=== PATIENT | female | born 2005 ===

== ENCOUNTER 2025-01-05 10:50 | Emergency (ER) | payer BC, SELFPAY ==
[2025-01-05 11:01] VITALS: BP 136/83; PULSE 73; RESP 24; TEMP 36.9; O2SAT 100; BMI 21.5
--- NOTE | 2025-01-05 11:19 | ED.NAVMDI ---
HPI - Nausea/Vomiting/Diarrhea General Chief complaint: Nausea/Vomiting/Diarrhea Stated complaint: vomiting, diarrhea, abd pain Time Seen by Provider: 01/05/25 11:10 Source: patient Mode of arrival: ambulatory Limitations: no limitations History of Present Illness ED Provider: HPI Narrative: 19-year-old woman presenting with abdominal pain nausea vomiting and diarrhea, she states this is common for her around the time she gets her period, she states she has been evaluated for this in the past and had an ultrasound done and on February 15 she is scheduled to see an Ob provider. Denies being , denies alcohol use, drug use. Related Data Previous Rx's ?Medication ?Instructions ?Recorded ondansetron 4 mg disintegrating 4 mg PO Q8H PRN nausea and 01/05/25 tablet vomiting #4 tabs Allergies Allergy/AdvReac Type Severity Reaction Status Date / Time No Known Allergies Allergy Verified 01/05/25 11:03 Review of Systems Constitutional: Constitutional: Reports as per [facility] Social History Social History Advance Directives: No Advance Directives Information Provided: Yes Physical Exam Vital Signs: Vital Signs: Last Vital Signs Temp 98.5 F 01/05/25 11:01 Pulse 73 01/05/25 11:01 Resp 24 H 01/05/25 11:01 BP 136/83 01/05/25 11:01 Pulse Ox 100 01/05/25 11:01 O2 Del Method Room Air 01/05/25 11:01 BMI result Body Mass Index 21.5 Const: Other: Gen: ?Appears to be in some discomfort HEENT: PERRLA, EOMI, MMM, Neck: Supple, no LAD CV: RRR, no obvious murmurs appreciated Resp: ?No wheezing rales rhonchi no stridor moving air well Abd: ?Bowel sounds are present, no tenderness no rebound no rigidity MSK: FROM, strength 5/5 all extremities Skin: Warm, dry, intact, Neuro: ?Alert and oriented x3, moving upper and lower extremities symmetrically, no obvious facial asymmetry noted Medications Administered Discontinued Medications Generic Name Dose Route Start Last Admin Trade Name Freq PRN Reason Stop Dose Admin Famotidine 20 mg 01/05/25 11:22 01/05/25 11:33 Famotidine/Pf 20 Mg/2 Ml Vial IVPUSH 01/05/25 11:23 20 mg ONCE ONE Administration Sodium Chloride 1,000 mls @ 999 mls/hr 01/05/25 11:30 01/05/25 12:12 Ns IV 01/05/25 12:30 Infused .Q1H1M OLIVIER Infusion Ketorolac Tromethamine 15 mg 01/05/25 11:22 01/05/25 11:33 Ketorolac Tromethamine 15 Mg/Ml Vial IVPUSH 01/05/25 11:23 15 mg ONCE ONE Administration Ondansetron HCl 4 mg 01/05/25 11:22 01/05/25 11:33 Ondansetron Hcl 4 Mg/2 Ml Vial IVPUSH 01/05/25 11:23 4 mg ONCE ONE Administration Medical Decision Making Medical Decision Making MDM Narrative: No prior records on this patient she states that this is a recurrent issue for her, we will medicate and reassess, fairly benign abdominal exam consideration for workup as below. Disposition to be determined 1:26 PM 01/05/2025 (Dr. Jadon Landa): Patient has been sleeping feeling better, workup reassuring Differential Diagnosis Differential Diagnoses: The differential diagnosis associated with the presentation includes (Ovarian torsion, ovarian cysts, viral infection, diverticulitis, appendicitis) Admission/Observation Consideration of admission/observation: Escalation of care including admission/observation considered Lab Data 01/05/25 11:29 01/05/25 11:29 Labs: Lab Results 01/05/25 01/05/25 Range/Units 11:29 12:18 WBC 6.8 (4.8-10.8) X10*3/uL RBC 4.12 L (4.20-5.50) X10*6/uL Hgb 9.9 L (12.0-16.0) g/dl Hct 29.8 L (37.0-47.0) % MCV 72.3 L (80.0-98.0) fL MCH 24.0 L (27.0-33.0) pg MCHC 33.2 (31.0-35.0) g/dl RDW 16.3 H (11.0-16.0) % Plt Count 307 (160-400) X10*3/uL MPV 9.4 (9.4-12.3) fL Immature Gran % (Auto) 0.1 (0.0-0.4) % Neut % (Auto) 65.7 (45-73) % Lymph % (Auto) 21.9 (20-40) % [place] % (Auto) 9.2 (2-11) % Eos % (Auto) 2.8 (0-4) % Baso % (Auto) 0.3 (0-2) % Lymph # (Auto) 1.5 (1.2-4.9) X10*3/uL [place] # (Auto) 0.6 (0.1-1.2) X10*3/uL Eos # (Auto) 0.2 (0.0-0.4) X10*3/uL Baso # (Auto) 0.0 (0.0-0.2) X10*3/uL Abs Immat Gran (auto) 0.01 (0.00-0.03) X10*3/uL Absolute Neuts (auto) 4.4 (2.0-8.3) x10*3/uL Absolute Nucleated RBC 0.000 (0.0-0.012) X10*3/uL Nucleated RBC % (auto) 0.0 (0.0-0.2) /100WBC Sodium 140 (135-145) mmol/L Potassium 3.3 (3.3-5.1) mmol/L Chloride 110 H (96-108) mmol/L Carbon Dioxide 20 L (22-29) mmol/L Anion Gap 13 (12-20) BUN 12 (9-16) mg/dL Creatinine 0.63 (0.5-1.4) mg/dL Estim Creat Clear Calc 117.8 Estimated GFR > 60 Random Glucose 89 (60-115) mg/dL Calcium 9.1 (8.4-10.2) mg/dL Total Bilirubin 1.2 H (0.0-1.0) mg/dL AST 24 (5-31) U/L ALT 14 (0-31) U/L Alkaline Phosphatase 55 (39-117) U/L Total Protein 7.2 (6.5-8.0) g/dL Albumin 4.5 (3.5-5.0) g/dL Lipase 16 (8-78) U/L Beta HCG, Quant < 2 mIU/mL Urine Color Yellow Urine Appearance Clear Urine pH 6.5 (5.0-9.0) Ur Specific [place] 1.025 (1.005-1.025) Urine Protein Negative (Neg-Trace) mg/dL Urine Glucose (UA) Negative (Negative) mg/dL Urine Ketones 15 (Negative) mg/dL Urine Blood Large (3+) H (Negative) Urine Nitrite Negative (Negative) Ur Leukocyte Esterase Trace H (Negative) Urine RBC 0-2 (0-2) /HPF Urine WBC 0-5 (0-5) /HPF Ur Squamous Epith Cells 0-2 (0-2) /HPF Urine Bacteria None Seen (None Seen) Hyaline Casts 3-5 (0-2) /LPF Discharge Plan Discharge Clinical Impression: Nausea and vomiting, Timothy Additional Instructions: Continue using ibuprofen 400 mg every 6 hours for the next 2 days, warm compresses to the abdomen, take this medication with food, Zofran as needed for nausea and vomiting Your workup today revealed microcytic anemia, I recommend iron supplements who, just get multivitamins that contain iron for daily use, these are [id number], the iron supplements that we have prescribe are quite honestly very constipating and can be very rough on the stomach, alternatively you can look for beet juice based iron supplement I know [facility] has some choices Zofran as needed for nausea and vomiting Prescriptions: New ondansetron 4 mg tablet,disintegrating 4 mg PO Q8H PRN (Reason: nausea and vomiting) Qty: 4 0RF Print Language: Faroese
--- NOTE | 2025-01-05 11:42 | PC.NURSE ---
Pt in tears at this time, IV placed, medications given per mar. Pt reporting this happens when she gets her period, of which she started this morning. Pt denies any other symptoms at this time. This RN discussed with pt concerns d/t receiving toradol prior to beta being back pt denied and was in agreement to get medication. Pt is not able to go pee at this time, aware that she needs a urine sample. Call magdaleno within reach at this time
[2025-01-05 11:56] LABS: MANUAL DIFF FLAG NO
[2025-01-05 11:59] LABS: Hematocrit 29.8 % (37.0-47.0); Hemoglobin 9.9 g/dl (12.0-16.0); Imm Gran Abs Auto 0.01 X10*3/uL (0.00-0.03); Imm Gran Pct Auto 0.1 % (0.0-0.4); Lymphocytes Absolute Auto 1.5 X10*3/uL (1.2-4.9); Mean Corpuscular HGB Conc 33.2 g/dl (31.0-35.0); Mean Corpuscular Hemoglobin 24.0 pg (27.0-33.0); Mean Corpuscular Volume 72.3 fL (80.0-98.0); NRBC Abs Auto 0.000 X10*3/uL (0.0-0.012); NRBC Pct Auto 0.0 /100WBC (0.0-0.2); Platelet Count 307 X10*3/uL (160-400); Red Blood Count 4.12 X10*6/uL (4.20-5.50); White Blood Count 6.8 X10*3/uL (4.8-10.8)
--- NOTE | 2025-01-05 12:17 | MHC.EDTECH ---
pt vomited 50mL of light yellow, foamy emesis
[2025-01-05 12:21] LABS: Alanine Aminotransferase 14 U/L (0-31); Albumin Level 4.5 g/dL (3.5-5.0); Alkaline Phosphatase 55 U/L (39-117); Anion Gap 13 (12-20); Aspartate Amino Transferase 24 U/L (5-31); Blood Urea Nitrogen 12 mg/dL (9-16); Calcium 9.1 mg/dL (8.4-10.2); Carbon Dioxide 20 mmol/L (22-29); Chloride 110 mmol/L (96-108); Creatinine Clr Calc Pharmacy 117.8; Estimated Glomerular Filt Rate > 60; Lipase 16 U/L (8-78); Potassium 3.3 mmol/L (3.3-5.1); Sodium 140 mmol/L (135-145); Total Protein 7.2 g/dL (6.5-8.0)
[2025-01-05 12:23] LABS: Appearance Urine Clear; Glucose Urine UA Negative (Negative); PH 6.5 (5.0-9.0); Specific Gravity - Urine 1.025 (1.005-1.025); UMIC TRIGGER UACC YES
[2025-01-05 13:56] VITALS: BP 136/83; PULSE 73; RESP 24; TEMP 36.9; O2SAT 100
== END 2025-01-05 13:57 | disposition home or self-care (01) ==
PROVIDERS: Emergency Provider Emergency Medicine; PCP Student in an Organized Health Care Education/Training Program
DX: R11.2 Nausea with vomiting, unspecified (principal); N94.0 Mittelschmerz; Z79.899 Other long term (current) drug therapy
CPT/HCPCS: 36415; 80053; 81001; 83690; 84702; 85025; 96361; 96374; 96375; 99284; 99285; J1308; J1885; J2405